=== PATIENT | male | born 1945 | race Caucasian/White ===

== ENCOUNTER → 2017-04-20 | Outpatient (CLI) | payer MEDICARE, BC ==
[~2017-04-20] MED LIST: ALEVE220 M1 PO; GOOD NEIGHBOR325 MG PO; NORCO 325 MG-51 TA1
== END ==
LOC: PT 09:30 → EDSTATUS 09:30 → PT 09:31
DX: Z01.818 Encounter for other preprocedural examination (principal); M25.561 Pain in right knee

== ENCOUNTER 2017-04-28 18:56 | Emergency (ER) | payer MEDICARE, BC ==
[2017-04-28 19:45] VITALS: BP 48/32
[2017-04-28] MEDS ORDERED: ALEVE220 M1 PO (21:08)
[2017-04-28] MEDS ORDERED: GOOD NEIGHBOR325 MG PO (21:08)
[2017-04-28] MEDS ORDERED: NORCO 325 MG-51 TA1 (21:09)
== END 2017-04-29 00:18 | disposition expired ==
LOC: ED 18:56
DX: K92.2 Gastrointestinal hemorrhage, unspecified (principal); R57.9 Shock, unspecified; R00.1 Bradycardia, unspecified; Z85.46 Personal history of malignant neoplasm of prostate; Z79.82 Long term (current) use of aspirin; Z96.651 Presence of right artificial knee joint
CPT/HCPCS: A7521; J0171; J0461; J7030; J7060